=== PATIENT | male | born 1995 | race Two or more races ===

== ENCOUNTER 2022-10-10 11:19 | Emergency (ER) | payer OTHER ==
[~2022-10-10] VITALS: Ht 182.9 cm; Wt 77.1 kg
--- NOTE | 2022-10-10 20:47 | EKG ---
[facility] [address] [facility] [place], [place] [address] Signed Sinus tachycardia Lateral infarct , age undetermined Abnormal ECG No previous ECGs available Confirmed by BLAINE KIM MD ([id number]) on 10/10/2022 8:47:11 PM Electronically Signed By: BLAINE KIM MD 10/10/222046 PATIENT NAME: TIA KOTHARI Electrocardiogram DATE OF : [birth year] PHYSICIAN: BLAINE KIM MD REPORT #: [id number] REPORT IS CONFIDENTIAL AND NOT TO BE RELEASED WITHOUT AUTHORIZATION
== END 2022-10-10 13:40 | disposition home or self-care (01) ==
LOC: ED 11:19
DX: R00.2 Palpitations (principal); F64.9 Gender identity disorder, unspecified; Z20.822 Contact with and (suspected) exposure to COVID-19
CPT/HCPCS: 36415; 80053; 85025; 87502; 93005; 93010; 96374; 99285-25; C9803; J2060; J7040; U0003